=== PATIENT | female | born 1965 ===

== ENCOUNTER 2018-04-15 13:24 | Emergency (ER) | payer OTHER ==
[2018-04-15 13:34] VITALS: BP 143/93; PULSE 83; RESP 16; TEMP 98.7; O2SAT 99
--- NOTE | 2018-04-15 13:49 | C.PDOC ---
History Of Present Illness 52 y/o female presents to the ER complaining of chronic knee pain ( R>L). Patient states that she was evaluated for similar symptoms and she had X-Rays performed in January 2015 and October 2017. Patient reports that she did not go to work today and she needs a work note. Time Seen by Provider: 04/15/18 13:40 Chief Complaint (Nursing): Lower Extremity Problem/Injury History Per: Patient History/Exam Limitations: no limitations Onset/Duration Of Symptoms: Days Severity: Moderate Past Medical History Reviewed: Historical Data, Nursing Documentation, Vital Signs Vital Signs: Last Vital Signs Temp 98.7 F 04/15/18 13:31 Pulse 83 04/15/18 13:31 Resp 16 04/15/18 13:31 BP 143/93 H 04/15/18 13:31 Pulse Ox 99 04/15/18 13:49 - Medical History PMH: No Chronic Diseases Surgical History: Family History: States: No Known Family Hx - Social History Hx Tobacco Use: No Hx Alcohol Use: Yes Hx Substance Use: No - Immunization History Hx Tetanus Toxoid Vaccination: No Hx Influenza Vaccination: No Hx Pneumococcal Vaccination: No Review Of Systems Except As Marked, All Systems Reviewed And Found Negative. Musculoskeletal: Positive for: Other (knee pain ) Physical Exam - Physical Exam Appears: Non-toxic, No Acute Distress Skin: Normal Color, Warm, Dry Head: Atraumatic, Normacephalic Eye(s): bilateral: Normal Inspection Nose: Normal Oral Mucosa: Moist Neck: Supple Chest: Symmetrical Extremity: Bilateral: Joint Effusion (suprapatellar knee effusion ( R>L)) Neurological/Psych: Oriented x3, Normal Speech ED Course And Treatment O2 Sat by Pulse Oximetry: 99 (RA) Pulse Ox Interpretation: Normal Medical Decision Making Medical Decision Making: mild R>L suprapatellar effusion, same as 09/16, 01/15 worse with heat therapy @ home instructed ice/NSAIDS opt f/u and weight loss instructed. Disposition Doctor Will See Patient In The: Office Counseled Patient/Family Regarding: Studies Performed, Diagnosis - Disposition Referrals: Shaik Black MD [Staff Provider] - Disposition: HOME/ ROUTINE Disposition Time: 13:49 Condition: GOOD Additional Instructions: continue ice packs 1/2 hour per hour, nothing hot motrin 400-600 mg every 6 hours as needed normal routine Instructions: Chronic Knee Pain Forms: [facility] (Salvadorean), Work Excuse - Clinical Impression Clinical Impression: Knee pain, chronic - Scribe Statement The provider has reviewed the documentation as recorded by the Valdoibe Chuck Oropeza Provider Attestation: All medical record entries made by the Valdoibe were at my direction and personally dictated by me. I have reviewed the chart and agree that the record accurately reflects my personal performance of the history, physical exam, medical decision making, and the department course for this patient. I have also personally directed, reviewed, and agree with the discharge instructions and disposition.
== END 2018-04-15 14:06 | disposition home or self-care (01) ==
LOC: C.ER 13:24
DX: M25.561 Pain in right knee (principal); M25.562 Pain in left knee; G89.29 Other chronic pain